=== PATIENT | male | born 1965 | race Caucasian/White ===

== ENCOUNTER 2020-12-21 08:02 | Outpatient (CLI) | payer MEDICAID ==
[2020-12-21] VITALS (8 sets, daily range): BP systolic 126–136; BP diastolic 66–82
[~2020-12-21] VITALS: Ht 190.5 cm; Wt 163.6 kg
[2020-12-21 09:10] LABS: BASOPHILS # (AUTO) 0.1 X10'3 (0-0.2); BASOPHILS % (AUTO) 1.9 % (0-1); EOSINOPHILS # (AUTO) 0.3 X10'3 (0-0.9); EOSINOPHILS % (AUTO) 4.8 % (0-6); HEMATOCRIT 48.2 % (42.0-52.0); HEMOGLOBIN 16.7 g/dl (14.0-17.9); LYMPHOCYTES % (AUTO) 32.8 % (21-51); MEAN CORPUSCULAR HEMOGLOBIN 30.7 PG (27.0-31.0); MEAN CORPUSCULAR HGB CONC 34.6 g/dL (33.0-36.5); MEAN CORPUSCULAR VOLUME 88.6 FL (78-98); MEAN PLATELET VOLUME 7.7 FL (7.4-10.4); MONOCYTES # (AUTO) 0.4 X10'3 (0-0.9); NEUTROPHILS # (AUTO) 3.3 X10'3 (1.8-7.7); NEUTROPHILS % (AUTO) 54.5 % (42-75); PLATELET COUNT 236 X10'3 (140-440); RED BLOOD COUNT 5.45 X10'6 (4.70-6.10); WHITE BLOOD COUNT 6.1 X10'3 (4.5-11.0)
[2020-12-21] MEDS ORDERED: aminophylline 250mg/10ml inj. IV PRN (09:35)
[2020-12-21] MEDS ORDERED: normal saline 500ml IV soln 500 ML IV ONE (09:35)
[2020-12-21] MEDS ORDERED: nitroGLYCERIN 0.4mg SUBLingual tab SL PRN (09:35)
[2020-12-21] MEDS ORDERED: regadenoson 0.4mg/5ml syringe IV ONE (09:35)
[2020-12-21 10:13] LABS: ALANINE AMINOTRANSFERASE 32 U/L (12-78); ALKALINE PHOSPHATASE 60 IU/L (46-116); ANION GAP 13 (8-16); ASPARTATE AMINO TRANSFERASE 18 U/L (10-37); BILIRUBIN,TOTAL 0.6 MG/DL (0.1-1.0); BLOOD UREA NITROGEN 14 MG/DL (7-18); BUN/CREATININE RATIO 15.6 (5.4-32.0); CALCIUM 9.6 MG/DL (8.5-10.1); CHLORIDE 102 MMOL/L (99-107); GLUCOSE 89 MG/DL (70-104); POTASSIUM 4.2 MMOL/L (3.5-5.1); SODIUM 138 MMOL/L (135-145); TOTAL CARBON DIOXIDE 23.5 MMOL/L (24-32); TOTAL PROTEIN 7.9 G/DL (6.4-8.2); eGFR 88 ML/MIN
== END 2020-12-21 23:59 | disposition home or self-care (01) ==
LOC: RAD 08:02
PROVIDERS: ATTEND Internal Medicine Cardiovascular Disease
DX: I21.9 Acute myocardial infarction, unspecified (principal); E78.5 Hyperlipidemia, unspecified; G47.33 Obstructive sleep apnea (adult) (pediatric); I49.9 Cardiac arrhythmia, unspecified
CPT/HCPCS: 36415; 78452; 80053; 83880; 84439; 84443; 84480; 85025; 93017; A9500; J0280; J2785; J7040

== ENCOUNTER 2021-01-11 09:37 | Day surgery (SDC) | payer MEDICAID ==
[~2021-01-11] VITALS: Ht 190.5 cm; Wt 166.7 kg
[2021-01-11] VITALS (11 sets, daily range): BP systolic 126–154; BP diastolic 76–106
[2021-01-11] MEDS ORDERED: nitroGLYCERIN 0.4mg SUBLingual tab SL PRN (10:00)
[2021-01-11] MEDS ORDERED: normal saline 1,000 ML IV SCH (10:00)
[2021-01-11] MEDS ORDERED: LORazepam 0.5 MG tablet PO PRN (10:00)
[2021-01-11] MEDS ORDERED: diphenhydrAMINE 25mg capsule PO PRN (10:00)
[2021-01-11] MEDS ORDERED: ASPI-611 PO (10:39)
[2021-01-11] MEDS ORDERED: NITR0.4T48 SL (10:39)
[2021-01-11] MEDS ORDERED: LORA10TA7 PO (10:39)
[2021-01-11] MEDS ORDERED: BUDE10.27 PO (10:39)
[2021-01-11] MEDS ORDERED: ALBU90AE (10:39)
[2021-01-11] MEDS ORDERED: ROSU20TA31 PO (10:39)
[2021-01-11] MEDS ORDERED: ACET-1025 PO (10:39)
[2021-01-11] MEDS ORDERED: ALLO300T8 PO (10:39)
[2021-01-11] MEDS ORDERED: normal saline 1000ml 1,000 ML IV SCH (12:25)
[2021-01-11] MEDS ORDERED: OXAZEpam 15mg capsule PO PRN (12:25)
[2021-01-11] MEDS ORDERED: proCHLORperazine 10 MG/2 ml inj IV PRN (12:25)
[2021-01-11] MEDS ORDERED: HYDROcodone/acetaminophen 5mg/325mg tablet PO PRN (12:25)
[2021-01-11] MEDS ORDERED: HYDROcodone/acetaminophen 10/325mg tab PO PRN (12:25)
[2021-01-11] MEDS ORDERED: ondansetron/PF 4mg/2ml inj IV PRN (12:25)
== END 2021-01-11 18:00 | disposition home or self-care (01) ==
LOC: SSTAY O 09:37
PROVIDERS: ATTEND Internal Medicine Cardiovascular Disease
DX: R94.39 Abnormal result of other cardiovascular function study (principal); I25.10 Atherosclerotic heart disease of native coronary artery without angina pectoris; M10.9 Gout, unspecified; E78.5 Hyperlipidemia, unspecified; F32.9 Major depressive disorder, single episode, unspecified; I10 Essential (primary) hypertension; I42.9 Cardiomyopathy, unspecified; J44.9 Chronic obstructive pulmonary disease, unspecified; Z79.899 Other long term (current) drug therapy; Z79.82 Long term (current) use of aspirin
CPT/HCPCS: 93005; 93458; 93567; 99152; C1760; C1769; J7030; Q0163; 99153; A4620; A6258

== ENCOUNTER 2021-10-20 05:33 | Day surgery (SDC) | payer MEDICAID ==
[2021-10-13 14:55] LABS: BASOPHILS # (AUTO) 0.1 X10'3 (0-0.2); BASOPHILS % (AUTO) 1.9 % (0-1); EOSINOPHILS # (AUTO) 0.3 X10'3 (0-0.9); EOSINOPHILS % (AUTO) 4.4 % (0-6); LYMPHOCYTES # (AUTO) 2.3 X10'3 (1.1-4.8); LYMPHOCYTES % (AUTO) 36.4 % (21-51); MEAN CORPUSCULAR HEMOGLOBIN 31.6 PG (27.0-31.0); MEAN PLATELET VOLUME 6.9 FL (7.4-10.4); MONOCYTES # (AUTO) 0.5 X10'3 (0-0.9); MONOCYTES % (AUTO) 8.7 % (2-12); NEUTROPHILS % (AUTO) 48.6 % (42-75); PRE OP HEMOGLOBIN 17.4 g/dL (14.0-17.9); PRE OP PLATELET COUNT 300 X10'3 (140-440); RED BLOOD COUNT 5.52 X10'6 (4.70-6.10); RED CELL DISTRIBUTION WIDTH 12.7 % (11.5-14.5)
[2021-10-13 15:20] LABS: ALBUMIN 4.1 G/DL (3.4-5.0); ALBUMIN/GLOBULIN RATIO 1.1 (1.1-1.5); ALKALINE PHOSPHATASE 74 IU/L (46-116); BLOOD UREA NITROGEN 15 MG/DL (7-18); BUN/CREATININE RATIO 17.2 (5.4-32.0); CALCIUM 9.4 MG/DL (8.5-10.1); CHLORIDE 103 MMOL/L (99-107); CREATININE 0.87 MG/DL (0.60-1.10); PRE OP ALT 31 U/L (30-65); PRE OP ANION GAP 13 (8-16); PRE OP AST 23 U/L (10-37); PRE OP BILIRUB, TOTAL 0.4 MG/DL (0.0-1.0); PRE OP GLUCOSE 98 MG/DL (70-104); PRE OP POTASSIUM 4.1 MMOL/L (3.4-5.1); PRE OP SODIUM 139 MMOL/L (135-145); TOTAL CARBON DIOXIDE 22.7 MMOL/L (24-32); eGFR > 90 ML/MIN
[2021-10-13 15:25] LABS: MEAN CORPUSCULAR VOLUME 90.3 FL (78-98); PRE OP HEMATOCRIT 50.2 % (42.0-52.0)
[2021-10-13 15:27] LABS: MEAN CORPUSCULAR HGB CONC 34.3 g/dL (33.0-36.5)
[~2021-10-20] VITALS: Ht 190.5 cm; Wt 166.1 kg
[~2021-10-20 05:33] MED LIST: ALBU90AE; ALLO300T8 PO; ASPI-611 PO; BUDE10.27 PO; LORA10TA7 PO; ROSU20TA31 PO; VARD20TA39 PO; ceFAZolin inj. 3,000 MG in normal saline 100ml IV soln 100 ML IV ONE; famotidine 20mg tablet PO ONE; ringers solution, lacted 1,000 ML IV SCH
[2021-10-20 05:50] VITALS: BP 140/86
[2021-10-20] MEDS ORDERED: BUPIVAcaine/PF 2.5mg/ml (0.25%) 10ml vial ONE (06:42)
[2021-10-20] MEDS ORDERED: labetalol 20mg/4ml (5mg/ml) syringe IV PRN (07:15)
[2021-10-20] MEDS ORDERED: morphine 4 MG/ML inj SYRINge IV PRN (07:15)
[2021-10-20] MEDS ORDERED: hydrALAZINE 20mg/ml inj. IV PRN (07:15)
[2021-10-20] MEDS ORDERED: ondansetron/PF 4mg/2ml inj IV PRN (07:15)
[2021-10-20] MEDS ORDERED: ringers solution, lacted 1,000 ML IV SCH (07:15)
[2021-10-20] MEDS ORDERED: morphine 2 MG/ML inj. syringe IV PRN (07:15)
[2021-10-20] MEDS ORDERED: fentaNYL/PF 50MCG/1 ML 2ML syringe IV PRN ×2 (07:15)
[2021-10-20] MEDS ORDERED: LIDOcaine 0.5% (5mg/ml) 50ml vial ONE (07:19)
[2021-10-20] MEDS ORDERED: MIDAZolam 1mg/ml 10ml vial ONE (07:25)
[2021-10-20] MEDS ORDERED: fentaNYL/PF 50MCG/1 ML 2ML syringe ONE (07:26)
[2021-10-20 08:31] VITALS: BP 128/84
--- NOTE | 2021-10-20 08:31 | NUR ---
Received from OR via , accompanied by Anesthesiologist DR WOODS and report given by Anesthesiolgist. AWAKENS TO VOICE. VITALS STABLE. DRESSING DI. BECKIE PAIN.FINGERS WARM AND PINK.
[2021-10-20 08:41] VITALS: BP 149/103
[2021-10-20 08:51] VITALS: BP 141/97
[2021-10-20 09:01] VITALS: BP 146/92
--- NOTE | 2021-10-20 09:21 | NUR ---
AWAKE AND ORIENTED. VITALS STABLE. DRESSING DI. BECKIE PAIN. HOME WITH HIS SON AT THIS TIME.
== END 2021-10-20 09:21 | disposition home or self-care (01) ==
LOC: PAS 05:33
PROVIDERS: ATTEND Orthopaedic Surgery Hand Surgery
DX: G56.02 Carpal tunnel syndrome, left upper limb (principal); M65.332 Trigger finger, left middle finger; M10.9 Gout, unspecified; M19.90 Unspecified osteoarthritis, unspecified site; E11.9 Type 2 diabetes mellitus without complications; J44.9 Chronic obstructive pulmonary disease, unspecified; G47.30 Sleep apnea, unspecified; I25.10 Atherosclerotic heart disease of native coronary artery without angina pectoris; I42.9 Cardiomyopathy, unspecified; Z87.891 Personal history of nicotine dependence; Z20.822 Contact with and (suspected) exposure to COVID-19; Z79.899 Other long term (current) drug therapy; Z79.82 Long term (current) use of aspirin
CPT/HCPCS: 26055; 29848; 36415; 80053; 82948; 85025; 93005; J0690; J2250; J3010; J3490; J7120; U0003; U0005; Z7512; A4215; A7000